=== PATIENT | male | born 1970 | race Caucasian/White ===

== ENCOUNTER 2017-02-11 16:20 | Emergency (ER) | payer OTHER ==
[~2017-02-11] VITALS: Ht 180.3 cm; Wt 98.5 kg
[~2017-02-11 16:20] MED LIST: AMLO5 PO; AZIT250T74 PO; LEVA750T PO; LORA10TA PO
[2017-02-11 16:27] VITALS: BP 157/106; PULSE 74; RESP 16; TEMP 98.6; O2SAT 96
[2017-02-11] MEDS ORDERED: LIDOCAINE 1%/EPINEPHrine 1:100,000 SOLN 20 ML VIAL INFIL ONE (16:45)
[2017-02-11] MEDS ORDERED: IBUPROFEN 800 MG TAB PO ONE (17:00)
--- NOTE | 2017-02-11 17:09 | PD ---
HPI Chief Complaint: Laceration/Skin Injury Time Seen by Provider: 17:08 Travel History International Travel<30 days: No Contact w/Intl Traveler<30days: No Traveled to known affect area: No History of Present Illness HPI 46-year-old right-hand dominant male presents to the ED for evaluation approximately 45 minutes after trip and fall. Patient states that he was attempting to load brush into his truck tripped over his shoe, fell onto the outstretched right hand and hit his head on the concrete lately. He states that he was wearing his glasses and he suffered a laceration over the left eye. He denies loss of consciousness. On presentation he complains of 5/10 pain in the right wrist and mild diffuse headache. Denies vision changes, dizziness , nausea. He is unsure of the date of his last tetanus immunization. He denies chronic health problems and takes no daily medications. NKDA. PFSH Past Medical History Medical History: Denies Significant Hx Arthritis: Yes Cancer: No Cardiovascular Problems: Yes (htn states not on meds) Diminished Hearing: No Endocrine: No Genitourinary: No Headaches: Yes Immune Disorder: No Musculoskeletal: Yes Neurologic: Yes Psychiatric: No Reproductive: No Respiratory: Yes (PNA LAST YEAR.) Immunizations Current: No Pneumonia: Yes (many times) Seizures: No Tetanus Vaccination: < 5 Years Influenza Vaccination: No ?: Not Past Surgical History Ear Surgery: Yes Tonsillectomy: Yes Tympanostomy Tube: Yes Social History Alcohol Use: Yes (BEER) Tobacco Use: No Substance Use: No Allergies-Medications (Allergen,Severity, Reaction): Coded Allergies: No Known Allergies (Verified , 02/11/17) Reported Meds & Prescriptions Reported Meds & Active Scripts Active Ibuprofen 800 Mg Tab 800 Mg PO Q8H Review of Systems Except as stated in HPI: all other systems reviewed are Neg Physical Exam Narrative GENERAL: Well-nourished, well-developed white male in no acute distress. Alert , oriented, sitting upright in the stretcher. SKIN: Warm and dry. There is 1.5 cm laceration just superior to the left eyebrow. Thorough evaluation reveals no other edema, ecchymosis, abrasion, or laceration of the skin. HEAD: Normocephalic. Atraumatic. No raccoon eyes or norton sign. No tenderness to palpation of the skull. No bony step-offs. No malocclusion of the teeth. EYES: No scleral icterus. No injection or drainage. PERRLA. EOMI. ENT: Pearly trejo tympanic membrane is bilaterally. Nasal mucosa is moist. Oropharynx without erythema, edema or exudate. NECK: Supple, trachea midline. No JVD or lymphadenopathy. No midline tenderness to palpation. Patient retains full, active, painless range of motion of the neck. CARDIOVASCULAR: Regular rate and rhythm without murmurs, gallops, or rubs. 2+ DP and radial pulses bilaterally. RESPIRATORY: Breath sounds clear and equal bilaterally. No accessory muscle use. GASTROINTESTINAL: Abdomen soft, non-tender, nondistended. + Bowel sounds Focused right upper extremity exam: Mild tenderness to palpation of the left wrist. Snuff box tenderness. Pain elicited with ulnar deviation. Strong Finger to thumb opposition. Patient retains full, active range of motion of the wrist and fingers. MUSCULOSKELETAL: No cyanosis, or edema. No tenderness to palpation or limitations to range of motion of the other joints of the upper and lower extremities bilaterally. NEUROLOGICAL: Awake and alert. Cranial nerves II through XII intact. Motor and sensory grossly within normal limits. 5/5 muscle strength in all muscle groups. Normal speech. BACK: Nontender without obvious deformity. No CVA tenderness. No midline tenderness. Data Data Last Documented VS Vital Signs Date Time Temp Pulse Resp B/P Pulse Ox O2 Delivery O2 Flow Rate FiO2 02/11/17 16:27 98.6 74 16 157/106 96 Orders Lidocai-Epi 1%-1:100,000 Inj (Xylocaine- (02/11/17 16:45) Wrist, Complete (Aok1xfn) (02/11/17 16:57) Ice/Cold Pack (02/11/17 16:57) Ibuprofen (Motrin) (02/11/17 17:00) Tetanus/Diphtheria Tox Adult (Tetanus/Di (02/11/17 17:15) MDM Medical Decision Making Medical Screen Exam Complete: Yes Emergency Medical Condition: Yes Differential Diagnosis Laceration versus wrist fracture versus closed head injury versus musculoskeletal pain versus other Narrative Course 46-year-old right-hand dominant male presents to the ED for evaluation approximately 45 minutes after trip and fall. Patient states that he was attempting to load brush into his truck tripped over his shoe, fell onto the outstretched right hand and hit his head on the concrete lately. He states that he was wearing his glasses and he suffered a laceration over the left eye. He denies loss of consciousness. On presentation he complains of 5/10 pain in the right wrist and mild diffuse headache. Denies vision changes, dizziness , nausea. He is unsure of the date of his last tetanus immunization. Vitals reviewed. Physical exam reveals an alert and oriented white male sitting up on the stretcher in no acute distress. Is 1.5 cm laceration just superior to left eyebrow. There is mild tenderness to palpation of the left wrist. No stuff box tenderness. Pain elicited with ulnar deviation. Neurovascularly intact. The need for radiological imaging of the brain and cervical spine was ruled out using [place] CT rules. Ice pack was applied. Patient was administered 100 mg ibuprofen. Tetanus immunization was updated. Laceration repair was performed. Please see my procedure note for details. X-ray reveals no acute bony injury of the wrist per radiology read. Patient was provided detailed wound care instructions, a brief course of anti-inflammatory medications was prescribed. He is instructed to monitor the wound for signs of infection, return to the ED for suture removal in 7 days. He indicated understanding of instructions. He is agreeable to the plan of care. He is stable and discharged home. Diagnosis Primary Impression: Laceration of left eyebrow with complication Qualified Code: S01.112A - Laceration of left eyebrow with complication, initial encounter Additional Impression: Right wrist pain Referrals: Primary Care Physician Patient Instructions: Facial Laceration (ED), General Instructions Additional Instructions: Rest, hydrate. Do not change the dressing for 24 hours You may bathe normally. Do not submerge the wound. After bathing pat of wound dry. Allow the wound to air dry for 10-15 minutes. Apply a thin layer of antibiotic ointment and a clean, dry dressing. 800 mg ibuprofen up to 3 times a day as needed for wrist pain. Suture removal in 7 days, either here or at the primary care or urgent care. Follow-up with your primary care provider in 2 weeks. Return to the ED for any urgent or emergent medical condition. Med/Other Pt SpecificInfo: Prescription(s) given Scripts Ibuprofen 800 Mg [id number] Mg PO Q8H #15 TAB Ref 0 Prov:Solo Faye MD 02/11/17 Disposition: 01 DISCHARGE HOME Condition: Stable Anabella Mattson Feb 11, 2017 17:09
[2017-02-11] MEDS ORDERED: TETANUS/DIPHTHERIA TOXOID ADULT 0.5 ML VIAL IM ONE (17:15)
--- NOTE | 2017-02-11 17:33 | RADHPO ---
EXAM DATE/TIME: 02/11/2017 17:13 [facility] COMPARISON: No previous studies available for comparison. INDICATIONS : Right medial wrist pain post fall. MEDICAL HISTORY : None. SURGICAL HISTORY : None. ENCOUNTER: Initial ACUITY: 1 day PAIN SCORE: 4/10 LOCATION: Right upper extremity FINDINGS: Three view examination of the right wrist demonstrates no soft tissue swelling, dislocation, or fract ure. The carpal bones are in normal alignment. The joint spaces are maintained. Bony mineralizatio n is normal. CONCLUSION: Negative for fracture or dislocation. Follow up in 7-10 days is suggested if symptoms persist. Guy Pablo MD FACR on February 11, 2017 at 17:28 Board Certified Radiologist. This report was verified electronically.
[2017-02-11] MEDS ORDERED: IBUP800T23 PO (17:58)
== END 2017-02-11 18:10 | disposition home or self-care (01) ==
LOC: PHEFT 16:20
DX: S01.112A Laceration without foreign body of left eyelid and periocular area, initial encounter (principal); M25.531 Pain in right wrist; Z23 Encounter for immunization; W01.198A Fall on same level from slipping, tripping and stumbling with subsequent striking against other object, initial encounter; Y93.89 Activity, other specified; Y92.89 Other specified places as the place of occurrence of the external cause; Y99.8 Other external cause status
CPT/HCPCS: 12011; 73110; 90471; 90714

== ENCOUNTER 2017-02-11 21:41 | Emergency (ER) | payer OTHER ==
[~2017-02-11] VITALS: Ht 180.3 cm; Wt 98.3 kg
[~2017-02-11 21:41] MED LIST changes: +IBUP800T23 PO
[2017-02-11 21:46] VITALS: BP 167/105; PULSE 65; RESP 16; TEMP 98.9; O2SAT 97
--- NOTE | 2017-02-11 22:11 | PD ---
HPI Chief Complaint: Laceration/Skin Injury Time Seen by Provider: 22:20 Travel History International Travel<30 days: No Contact w/Intl Traveler<30days: No Traveled to known affect area: No History of Present Illness HPI 46-year-old male who underwent laceration repair of the left eyebrow today presents to the ED for evaluation. Patient states that he went home, showered and had a "large amount" of dark red blood from the wound. Resolved on presentation. PFSH Past Medical History Arthritis: Yes Cancer: No Cardiovascular Problems: Yes (htn states not on meds) Diminished Hearing: No Endocrine: No Genitourinary: No Headaches: Yes Immune Disorder: No Musculoskeletal: Yes Neurologic: Yes Psychiatric: No Reproductive: No Respiratory: Yes (PNA LAST YEAR.) Immunizations Current: No Pneumonia: Yes (many times) Seizures: No Tetanus Vaccination: < 5 Years Influenza Vaccination: No Past Surgical History Ear Surgery: Yes Tonsillectomy: Yes Tympanostomy Tube: Yes Social History Alcohol Use: Yes (BEER) Tobacco Use: No Substance Use: No Allergies-Medications (Allergen,Severity, Reaction): Coded Allergies: No Known Allergies (Verified , 02/11/17) Reported Meds & Prescriptions Reported Meds & Active Scripts Active Ibuprofen 800 Mg Tab 800 Mg PO Q8H Review of Systems Except as stated in HPI: all other systems reviewed are Neg Physical Exam Narrative GENERAL: Well-nourished, well-developed white male in no acute distress. SKIN: Focused skin assessment warm/dry. There is a 1.5 cm laceration just superior to the left eyebrow. There are [address] Small amount of surrounding edema but no hematoma or active bleeding. HEAD: Normocephalic. EYES: No scleral icterus. No injection or drainage. NECK: Supple, trachea midline. No JVD or lymphadenopathy. CARDIOVASCULAR: Regular rate and rhythm without murmurs, gallops, or rubs. RESPIRATORY: Breath sounds equal bilaterally. No accessory muscle use. GASTROINTESTINAL: Abdomen soft, non-tender, nondistended. MUSCULOSKELETAL: No cyanosis, or edema. Patient is able to remove extremity spontaneously. BACK: Nontender without obvious deformity. No CVA tenderness. Data Data Last Documented VS Vital Signs Date Time Temp Pulse Resp B/P Pulse Ox O2 Delivery O2 Flow Rate FiO2 02/11/17 21:46 98.9 65 16 167/105 97 MDM Medical Decision Making Medical Screen Exam Complete: Yes Emergency Medical Condition: Yes Differential Diagnosis Laceration repair versus wound dehiscence versus arterial bleed versus wound recheck versus other Narrative Course 46-year-old male who underwent laceration repair of the left eyebrow today presents to the ED for evaluation. Patient states that he went home, showered and had a "large amount" of dark red blood from the wound. Resolved on presentation. There is a 1.5 cm laceration just superior to the left eyebrow. There are [address] Small amount of surrounding edema but no hematoma or active bleeding. The wound was cleansed with peroxide and water. Removal of the dried blood reveals no active bleeding. Suture line is in place. A pressure dressing was applied. Patient was instructed to follow previous discharge instructions, suture removal in 7 days. He indicated understanding or the instructions and is agreeable to the plan. He is stable and discharged home. Diagnosis Primary Impression: Encounter for wound re-check Referrals: Primary Care Physician Additional Instructions: Continue following previous discharge instructions. Suture removal in 7 days. Return to the ED for any urgent or emergent medical condition. Disposition: 01 DISCHARGE HOME Condition: Stable Anabella Mattson Feb 11, 2017 22:11
== END 2017-02-11 22:24 | disposition home or self-care (01) ==
LOC: PHEFT 21:41
DX: Z48.89 Encounter for other specified surgical aftercare (principal)
CPT/HCPCS: 99282

== ENCOUNTER 2018-02-06 14:02 | Emergency (ER) | payer OTHER ==
[~2018-02-06] VITALS: Ht 177.8 cm; Wt 98.7 kg
[~2018-02-06 14:02] MED LIST changes: -AMLO5 PO; -AZIT250T74 PO; +IBUP1TAB7 PO; -IBUP800T23 PO; -LEVA750T PO; -LORA10TA PO
[2018-02-06 14:04] VITALS: BP 168/83; PULSE 120; RESP 16; TEMP 99.6; O2SAT 95
[2018-02-06 15:13] VITALS: BP 158/87; PULSE 94; RESP 18; O2SAT 95
[2018-02-06] MEDS ORDERED: SUPPLEMENT PO (15:13)
[2018-02-06] MEDS ORDERED: [UNRECOGNIZED DRUG - OTHER] PO (15:13)
[2018-02-06] MEDS ORDERED: LISI-519 PO (15:13)
[2018-02-06] MEDS ORDERED: [UNRECOGNIZED DRUG - OTHER] PO (15:13)
--- NOTE | 2018-02-06 15:35 | PD ---
HPI Chief Complaint: Pain: Acute or Chronic Time Seen by Provider: 15:21 Travel History International Travel<30 days: No Contact w/Intl Traveler<30days: No Traveled to known affect area: No History of Present Illness HPI 47-year-old male complains of sharp shooting pain on left side of the head. Patient states that the pain started this afternoon. Patient states that the pain is sharp shooting pain started in the back of the head radiates to the left side of the head. Patient denies any visual change. Patient denies any photophobia. Patient denies any nausea vomiting. Patient denies any neck pain. Patient denies any focal weakness or numbness of extremity. Patient denies any recent injury. Patient denies any fever chills. PFSH Past Medical History Hx Anticoagulant Therapy: No Arthritis: Yes Cancer: No Cardiovascular Problems: Yes (HTN) Diabetes: No Diminished Hearing: No Endocrine: No Genitourinary: No Headaches: Yes Hypertension: Yes Immune Disorder: No Musculoskeletal: Yes Neurologic: Yes Psychiatric: No Reproductive: No Respiratory: Yes (PNA LAST YEAR.) Immunizations Current: Yes Pneumonia: Yes (many times) Seizures: No Tetanus Vaccination: < 5 Years Influenza Vaccination: No Past Surgical History Ear Surgery: Yes Tonsillectomy: Yes Tympanostomy Tube: Yes Social History Alcohol Use: Yes (BEER) Tobacco Use: No Substance Use: No Allergies-Medications (Allergen,Severity, Reaction): Coded Allergies: No Known Allergies (Verified Adverse Reaction, Unknown, 02/06/18) Reported Meds & Prescriptions Reported Meds & Active Scripts Active Reported [Knee Supplement] 3 Tab PO DAILY [Censor] 2 Tab PO BID Lisinopril 5 Mg Tab 5 Mg PO DAILY Review of Systems General / Constitutional: No: Fever Eyes: No: Visual changes HENT: Positive: Headaches Cardiovascular: No: Chest Pain or Discomfort Respiratory: No: Shortness of Breath Gastrointestinal: No: Abdominal Pain Genitourinary: No: Dysuria Musculoskeletal: No: Pain Skin: No Rash Neurologic: No: Weakness Psychiatric: No: Depression Endocrine: No: Polydipsia Hematologic/Lymphatic: No: Easy Bruising Physical Exam Narrative GENERAL: Well-nourished, well-developed patient. SKIN: Focused skin assessment warm/dry. HEAD: Normocephalic. Mild tenderness in palpation left occipital area of the scalp. No redness no heat no rash noted. EYES: No scleral icterus. No injection or drainage. Pupils 2 mm equal reactive. NECK: Supple, trachea midline. No JVD or lymphadenopathy. CARDIOVASCULAR: Regular rate and rhythm without murmurs, gallops, or rubs. RESPIRATORY: Breath sounds equal bilaterally. No accessory muscle use. GASTROINTESTINAL: Abdomen soft, non-tender, nondistended. MUSCULOSKELETAL: No cyanosis, or edema. BACK: Nontender without obvious deformity. No CVA tenderness. Neurologic exam: Patient is awake and alert oriented 3. No obvious focal neurologic deficit. Data Data Last Documented VS Vital Signs Date Time Temp Pulse Resp B/P (MAP) Pulse Ox O2 Delivery O2 Flow Rate FiO2 02/06/18 15:13 94 18 158/87 (110) 95 Room Air 02/06/18 14:04 99.6 Orders Orders Westergren Sedimentation Rate (02/06/18 15:30) Ct Brain W/O Iv Contrast(Rout) (02/06/18 15:30) MDM Medical Decision Making Medical Screen Exam Complete: Yes Emergency Medical Condition: Yes Differential Diagnosis Differential diagnosis including neuralgia, shingles, intracranial pathology. Narrative Course 47-year-old male with sharp shooting pain for the back of the head to the left side of the head. Tam Mosquera MD Feb 06, 2018 15:35
[2018-02-06 17:07] VITALS: BP 119/75; PULSE 67; RESP 18; O2SAT 98
--- NOTE | 2018-02-06 17:11 | RADRPT ---
EXAM DATE/TIME: 02/06/2018 16:51 [facility] COMPARISON: No previous studies available for comparison. INDICATIONS : Shooting pain to left side of head. RADIATION DOSE: 63.48 CTDIvol (mGy) MEDICAL HISTORY : Hypertension. SURGICAL HISTORY : None. ENCOUNTER: Initial ACUITY: 1 day PAIN SCALE: 4/10 LOCATION: Left cranial TECHNIQUE: Multiple contiguous axial images were obtained of the head. Using automated exposure control and adj ustment of the mA and/or kV according to patient size, radiation dose was kept as low as reasonably a chievable to obtain optimal diagnostic quality images. DICOM format image data is available electro nically for review and comparison. FINDINGS: CEREBRUM: The ventricles are normal for age. No evidence of midline shift, mass lesion, hemorrhage or acute in farction. No extra-axial fluid collections are seen. POSTERIOR FOSSA: The cerebellum and brainstem are intact. The 4th ventricle is midline. The cerebellopontine angle i s unremarkable. EXTRACRANIAL: The visualized portion of the orbits is intact. SKULL: The calvaria is intact. No evidence of skull fracture. CONCLUSION: Negative noncontrast head CT. Vineet tSewart MD on February 06, 2018 at 17:08 Board Certified Radiologist. This report was verified electronically.
[2018-02-06] MEDS ORDERED: CODE30TA2 PO (17:31)
[2018-02-06] MEDS ORDERED: ZOFR4TAB3 SL (17:31)
--- NOTE | 2018-02-06 17:33 | PD ---
Physical Exam Narrative GENERAL: SKIN: Warm and dry. HEAD: Atraumatic. Normocephalic. no temporal ttp, no rash, no lesions of skin EYES: Pupils equal and round. No scleral icterus. No injection or drainage. ENT: No nasal bleeding or discharge. Mucous membranes pink and moist. NECK: Trachea midline. No JVD. CARDIOVASCULAR: Regular rate and rhythm. RESPIRATORY: No accessory muscle use. Clear to auscultation. Breath sounds equal bilaterally. GASTROINTESTINAL: Abdomen soft, non-tender, nondistended. MUSCULOSKELETAL: Extremities without clubbing, cyanosis, or edema. No obvious deformities. NEUROLOGICAL: Awake and alert. No obvious cranial nerve deficits. Motor grossly within normal limits. Five out of 5 muscle strength in the arms and legs. Normal speech. PSYCHIATRIC: Appropriate mood and affect; insight and judgment normal. Data Data Last Documented VS Vital Signs Date Time Temp Pulse Resp B/P (MAP) Pulse Ox O2 Delivery O2 Flow Rate FiO2 02/06/18 17:07 67 18 119/75 (90) 98 Room Air 02/06/18 14:04 99.6 Orders Orders Westergren Sedimentation Rate (02/06/18 15:30) Ct Brain W/O Iv Contrast(Rout) (02/06/18 15:30) Labs Laboratory Tests Test 02/06/18 15:30 Erythrocyte Sedimentation Rate 1 mm/hr [facility] Medical Record Reviewed: Yes Supervised Visit with MARIA: No Narrative Course Sed rate level was 1 which is well below what is expected for temporal arteritis. Therefore this is not in the differential of possibilities. However the possibility of occipital neuralgia is very likely as the pain starts from the posterior left side and radiates outward. CT head is negative for any intracranial hemorrhage, mass, or sinusitis. Diagnosis Primary Impression: neuralgia Patient Instructions: Acute Headache (ED), General Instructions Scripts Ondansetron Odt (Zofran Odt) 4 Mg Tab 4 MG SL Q8HR Y for Nausea/Vomiting, #15 TAB 0 Refills Prov: Guillaume Aponte MD 02/06/18 Codeine-Acetaminophen (Codeine-Acetaminophen) 30-300 mg Tab 1 TAB PO Q4H Y for PAIN, #15 TAB 0 Refills Prov: Guillaume Aponte MD 02/06/18 Disposition: DISCHARGE HOME Condition: Stable Guillaume Aponte MD Feb 06, 2018 17:33
[2018-02-06 18:30] VITALS: BP 119/75
== END 2018-02-06 18:31 | disposition home or self-care (01) ==
LOC: PHED 14:02
DX: M79.2 Neuralgia and neuritis, unspecified (principal); I10 Essential (primary) hypertension
CPT/HCPCS: 70450; 85652; 99284

== ENCOUNTER 2018-04-22 13:05 | Emergency (ER) | payer OTHER ==
[~2018-04-22] VITALS: Ht 177.8 cm; Wt 92.8 kg
[~2018-04-22 13:05] MED LIST changes: +CODE30TA2 PO; -IBUP1TAB7 PO; +LISI-519 PO; +SUPPLEMENT PO; +ZOFR4TAB3 SL; +[UNRECOGNIZED DRUG - OTHER] PO; +[UNRECOGNIZED DRUG - OTHER] PO
[2018-04-22 13:12] VITALS: BP 146/81; PULSE 84; RESP 20; TEMP 99.1; O2SAT 93
[2018-04-22] MEDS ORDERED: PRED20 PO (13:29)
[2018-04-22] MEDS ORDERED: [UNRECOGNIZED DRUG - OTHER] PO (13:29)
[2018-04-22] MEDS ORDERED: SODIUM CHLORIDE 0.9% FLUSH 10 ML FLUSH IVF PRN (13:30)
--- NOTE | 2018-04-22 13:59 | PD ---
HPI . Cough and shortness of breath Chief Complaint: Respiratory Symptoms Time Seen by Provider: 13:19 Travel History International Travel<30 days: No Contact w/Intl Traveler<30days: No Traveled to known affect area: No History of Present Illness HPI Patient presents with a cough, shortness of breath, fever and sputum production. He had the onset of some nasal congestion approximately 5 days ago. He attributed it to allergies. He called his doctor who called in a prescription for prednisone 20 mg daily for 5 days. He has completed 4 days of the prednisone. He has gotten worse rather than better. His chest symptoms started 4 days ago. The chest symptoms have gotten progressively worse. He now has dyspnea on exertion. PFSH Past Medical History Hx Anticoagulant Therapy: No Arthritis: Yes Cancer: No Cardiovascular Problems: Yes (HTN) Diabetes: No Diminished Hearing: No Endocrine: No Genitourinary: No Headaches: Yes Hypertension: Yes Immune Disorder: No Musculoskeletal: Yes Neurologic: Yes Psychiatric: No Reproductive: No Respiratory: Yes (PNA LAST YEAR.) Immunizations Current: Yes (UTD) Pneumonia: Yes (many times) Seizures: No Influenza Vaccination: No Past Surgical History Ear Surgery: Yes Tonsillectomy: Yes Tympanostomy Tube: Yes (EARDRUM REPAIR) Social History Alcohol Use: Yes (BEER OCC) Tobacco Use: No (NEVER) Substance Use: No Allergies-Medications (Allergen,Severity, Reaction): Coded Allergies: No Known Allergies (Verified Adverse Reaction, Unknown, 04/22/18) Reported Meds & Prescriptions Reported Meds & Active Scripts Active Reported [Htn Supplement] 2 Tab PO DAILY Prednisone 20 Mg Tab 20 Mg PO DAILY [Knee Supplement] 3 Tab PO DAILY Review of Systems Except as stated in HPI: all other systems reviewed are Neg General / Constitutional: Positive: Fever, Chills Cardiovascular: Positive: Dyspnea on exertion Respiratory: Positive: Cough, Shortness of Breath Physical Exam Narrative GENERAL: Awake and alert and in no acute distress. SKIN: warm/dry. HEAD: Normocephalic. Atraumatic. EYES: Pupils equal and round. Extraocular movements are intact. ENT: Mucous membranes pink and moist. NECK: Supple. Full range of motion without pain.. CARDIOVASCULAR: Regular rate and rhythm. Heart sounds normal. RESPIRATORY: No accessory muscle use. Rhonchi in the right midlung field. Breath sounds equal bilaterally. Respiratory rate 20 with sats of 93% on room air. Previous sats have been 97-98% in the past. MUSCULOSKELETAL: No obvious deformities. Normal muscle tone. No peripheral edema. NEUROLOGICAL: Awake and alert. No obvious cranial nerve deficits. Motor grossly within normal limits. Normal speech. PSYCHIATRIC: Appropriate mood and affect; insight and judgment normal. Data Data Last Documented VS Vital Signs Date Time Temp Pulse Resp B/P (MAP) Pulse Ox O2 Delivery O2 Flow Rate FiO2 04/22/18 13:19 18 93 04/22/18 13:12 99.1 84 146/81 (102) Orders Orders Basic Metabolic Panel (Bmp) (04/22/18 13:21) Complete Blood Count With Diff (04/22/18 13:21) Lactic Acid Sepsis Protocol (04/22/18 13:21) Blood Culture (04/22/18 13:21) Chest, Pa & Lat (04/22/18 13:21) Iv Access Insert/Monitor (04/22/18 13:21) Sodium Chloride 0.9% Flush (Ns Flush) (04/22/18 13:30) Ceftriaxone Inj (Rocephin Inj) (04/22/18 14:45) Azithromycin Inj (Zithromax Inj) (04/22/18 14:45) Labs Laboratory Tests Test 04/22/18 14:05 White Blood Count 9.2 TH/MM3 Red Blood Count 5.20 MIL/MM3 Hemoglobin 15.9 GM/DL Hematocrit 44.9 % Mean Corpuscular Volume 86.4 FL Mean Corpuscular Hemoglobin 30.6 PG Mean Corpuscular Hemoglobin Concent 35.5 % Red Cell Distribution Width 13.7 % Platelet Count 225 TH/MM3 Mean Platelet Volume 8.5 FL Neutrophils (%) (Auto) 79.4 % Lymphocytes (%) (Auto) 15.5 % Monocytes (%) (Auto) 4.7 % Eosinophils (%) (Auto) 0.1 % Basophils (%) (Auto) 0.3 % Neutrophils # (Auto) 7.4 TH/MM3 Lymphocytes # (Auto) 1.4 TH/MM3 Monocytes # (Auto) 0.4 TH/MM3 Eosinophils # (Auto) 0.0 TH/MM3 Basophils # (Auto) 0.0 TH/MM3 CBC Comment DIFF FINAL Differential Comment Blood Urea Nitrogen 18 MG/DL Creatinine 1.10 MG/DL Random Glucose 110 MG/DL Calcium Level 8.3 MG/DL Sodium Level 130 MEQ/L Potassium Level 3.5 MEQ/L Chloride Level 96 MEQ/L Carbon Dioxide Level 25.3 MEQ/L Anion Gap 9 MEQ/L Estimat Glomerular Filtration Rate 71 ML/MIN Lactic Acid Level 1.3 mmol/L MDM Medical Decision Making Medical Screen Exam Complete: Yes Emergency Medical Condition: Yes Differential Diagnosis Differential diagnosis includes but is not limited to viral respiratory illness , bronchitis, pneumonia, allergies, CHF, asthma/COPD. Narrative Course Patient presents for the evaluation of cough associated with fever and sputum production. His oxygen saturation is a little bit lower than previously. He has no history of heart or lung disease and no history of cigarette smoking. Evaluation for possible pneumonia is in process. Last Impressions Chest X-Ray 04/22/18 1321 Signed Impressions: CONCLUSION: Partially consolidated left lower lobe infiltrate. The chest x-ray was independently reviewed by me. He will be given Rocephin and Zithromax. CBC & BMP Diagram 04/22/18 14:05 Calcium Level 8.3 L He is not in any respiratory distress. He does not have SIRS. The patient will be discharged home with a prescription for Zithromax. He will be asked to follow-up with his primary care doctor next week. Diagnosis Primary Impression: Pneumonia Qualified Codes: J18.1 - Lobar pneumonia, unspecified organism Referrals: David Finn MD PhD Patient Instructions: Community Acquired Pneumonia (DC), General Instructions Med/Other Pt SpecificInfo: Prescription(s) given Scripts Azithromycin (Zithromax) 250 Mg Tab 250 MG PO DAILY for Infection for 4 Days, #4 TAB 0 Refills start tomorrow Prov: Vikki Augustine MD 04/22/18 Disposition: 01 DISCHARGE HOME Condition: Stable Vikki Augustine MD Apr 22, 2018 13:59
[2018-04-22 14:16] LABS: AUTOMATED NEUTROPHIL # 7.4 TH/MM3 (1.8-7.7); BASOPHIL % 0.3 % (0.0-2.0); EOSINOPHIL % 0.1 % (0.0-4.0); HEMATOCRIT 44.9 % (39.0-51.0); HEMOGLOBIN 15.9 GM/DL (13.0-17.0); LYMPH % 15.5 % (9.0-44.0); LYMPHOCYTE # 1.4 TH/MM3 (1.0-4.8); MEAN CELL VOLUME 86.4 FL (80.0-100.0); MEAN CORPUSCULAR HEMOGLOBIN 30.6 PG (27.0-34.0); MEAN CORPUSCULAR HGB CONC 35.5 % (32.0-36.0); MEAN PLATELET VOLUME 8.5 FL (7.0-11.0); MONO % 4.7 % (0.0-8.0); MONOCYTE # 0.4 TH/MM3 (0-0.9); NEUT % 79.4 % (16.0-70.0); PLATELET COUNT 225 TH/MM3 (150-450); RED CELL DISTRIBUTION WIDTH 13.7 % (11.6-17.2); WHITE BLOOD COUNT 9.2 TH/MM3 (4.0-11.0)
--- NOTE | 2018-04-22 14:21 | RADRPT ---
EXAM DATE: 04/22/2018 2:16 PM EDT AGE/SEX: 47 years / Male INDICATIONS: Cough. Congestion. CLINICAL DATA: This is the patient's initial encounter. Patient reports that signs and symptoms have been present for 4 - 6 days and indicates a pain score of 4/10. MEDICAL/SURGICAL HISTORY: None. None. COMPARISON: [facility], CHEST PA & LAT, 12/15/2011. [facility], CHEST PA & LAT, 12/20/2014. . FINDINGS: PA and lateral views of the chest demonstrate interval development of a nonconsolidative infiltrate i n the medial posterior left lower lung causing loss of delineation of the posterior hemidiaphragm on the lateral view. The right lung is clear. The heart is normal in size. No evidence of pneumothorax. The osseous structures are intact. CONCLUSION: Partially consolidated left lower lobe infiltrate. Electronically signed by: Albaro Lagunas MD 04/22/2018 2:20 PM EDT
[2018-04-22 14:27] LABS: CALCIUM 8.3 MG/DL (8.5-10.1)
[2018-04-22 14:28] LABS: BICARBONATE 25.3 MEQ/L (21.0-32.0)
[2018-04-22 14:31] LABS: CREATININE 1.1 MG/DL (0.60-1.30)
[2018-04-22] MEDS ORDERED: cefTRIAXone INJ 2,000 MG in SODIUM CHLORIDE 0.9% INJ 100 ML IV ONE (14:45)
[2018-04-22] MEDS ORDERED: AZITHROMYCIN INJ 500 MG in SODIUM CHLOR 0.9% 250 ML INJ 250 ML IV ONE (14:45)
[2018-04-22] MEDS ORDERED: ZITH250T PO (15:04)
[2018-04-22] MEDS ORDERED: ONDANSETRON HCL 4 MG/2 ML VIAL IV PUSH ONE (15:45)
[2018-04-22 17:11] VITALS: BP 140/83; PULSE 71; RESP 16
== END 2018-04-22 17:21 | disposition home or self-care (01) ==
LOC: PHED 13:05
DX: J18.1 Lobar pneumonia, unspecified organism (principal); R05 Cough; R06.02 Shortness of breath; I10 Essential (primary) hypertension; M19.90 Unspecified osteoarthritis, unspecified site
CPT/HCPCS: 71046; 80048; 83605; 85025; 87040; 96365; 96367; 96375; 99284; J0456; J0696; J2405; J7050

== ENCOUNTER 2018-04-24 18:02 | Emergency (ER) | payer OTHER ==
[~2018-04-24] VITALS: Ht 177.8 cm; Wt 89.0 kg
[~2018-04-24 18:02] MED LIST changes: -CODE30TA2 PO; -LISI-519 PO; +PRED20 PO; +ZITH250T PO; -ZOFR4TAB3 SL; +[UNRECOGNIZED DRUG - OTHER] PO; -[UNRECOGNIZED DRUG - OTHER] PO
[2018-04-24 18:13] VITALS: BP 145/84; PULSE 81; RESP 18; TEMP 99.7; O2SAT 92
[2018-04-24] MEDS ORDERED: LEVOFLOXACIN 500 MG PREMIX INJ 100 ML IV ONE (18:15)
--- NOTE | 2018-04-24 18:33 | PD ---
HPI Chief Complaint: Respiratory Symptoms Time Seen by Provider: 18:08 Travel History International Travel<30 days: No Contact w/Intl Traveler<30days: No Traveled to known affect area: No History of Present Illness HPI 47-year-old male presented ER for evaluation of cough, shortness of breath, fever for the last 2 days. Patient was diagnosed with left lower lobe pneumonia on April 22 and was offered to be admitted but patient preferred outpatient treatment but for the last 2 days he has been having fever that is not well controlled with Tylenol, shortness of breath, cough that is not improving with outpatient oral antibiotics. Patient called his primary care physician who advised him to come to the ER for further evaluation. Patient has no chest pain, no nausea or vomiting and has been able to tolerate food well. PFSH Past Medical History Hx Anticoagulant Therapy: No Arthritis: Yes Cancer: No Cardiovascular Problems: Yes (HTN) Diabetes: No Diminished Hearing: No Endocrine: No Genitourinary: No Headaches: Yes Hypertension: Yes Immune Disorder: No Musculoskeletal: Yes Neurologic: Yes Psychiatric: No Reproductive: No Respiratory: Yes (PNA LAST YEAR.) Immunizations Current: Yes (UTD) Pneumonia: Yes (many times) Seizures: No Past Surgical History Ear Surgery: Yes Tonsillectomy: Yes Tympanostomy Tube: Yes (EARDRUM REPAIR) Social History Alcohol Use: Yes (BEER OCC) Tobacco Use: No (NEVER) Substance Use: No Allergies-Medications (Allergen,Severity, Reaction): Coded Allergies: No Known Allergies (Verified Adverse Reaction, Unknown, 04/22/18) Reported Meds & Prescriptions Reported Meds & Active Scripts Active Zithromax (Azithromycin) 250 Mg Tab 250 Mg PO DAILY 4 Days start tomorrow Reported [Htn Supplement] 2 Tab PO DAILY [Knee Supplement] 3 Tab PO DAILY Review of Systems Except as stated in HPI: all other systems reviewed are Neg Physical Exam Narrative GENERAL: Alert oriented 3 no acute distress SKIN: Focused skin assessment warm/dry. HEAD: Atraumatic. Normocephalic. EYES: Pupils equal and round. No scleral icterus. No injection or drainage. ENT: No nasal bleeding or discharge. Mucous membranes pink and moist. NECK: Trachea midline. No JVD. CARDIOVASCULAR: Regular rate and rhythm. No murmur appreciated. RESPIRATORY: Mild decreased breath sounds left lower lobe arguello, saturating in the lower 90s on room air, no accessory muscle use. GASTROINTESTINAL: Abdomen soft, non-tender, nondistended. Hepatic and splenic margins not palpable. MUSCULOSKELETAL: No obvious deformities. No clubbing. No cyanosis. No edema. NEUROLOGICAL: Awake and alert. No obvious cranial nerve deficits. Motor grossly within normal limits. Normal speech. PSYCHIATRIC: Appropriate mood and affect; insight and judgment normal. Data Data Last Documented VS Vital Signs Date Time Temp Pulse Resp B/P (MAP) Pulse Ox O2 Delivery O2 Flow Rate FiO2 04/24/18 21:10 65 20 132/68 (89) 95 04/24/18 20:30 99.3 Room Air Orders Orders Complete Blood Count With Diff (04/24/18 18:14) Comprehensive Metabolic Panel (04/24/18 18:14) Lactic Acid (04/24/18 18:14) Troponin I (04/24/18 18:14) Urinalysis - C+S If Indicated (04/24/18 18:14) Blood Culture (04/24/18 18:14) Chest, Pa & Lat (04/24/18 ) Levofloxacin 500 Mg Premix Inj (Levaquin (04/24/18 18:15) Sodium Chlor 0.9% 1000 Ml Inj (Ns 1000 M (04/24/18 20:30) Ketorolac Inj (Toradol Inj) (04/24/18 20:30) Labs Laboratory Tests Test 04/24/18 18:30 04/24/18 18:35 04/24/18 18:40 White Blood Count 7.3 TH/MM3 Red Blood Count 5.02 MIL/MM3 Hemoglobin 15.0 GM/DL Hematocrit 44.3 % Mean Corpuscular Volume 88.4 FL Mean Corpuscular Hemoglobin 29.9 PG Mean Corpuscular Hemoglobin Concent 33.9 % Red Cell Distribution Width 13.1 % Platelet Count 218 TH/MM3 Mean Platelet Volume 8.8 FL Neutrophils (%) (Auto) 67.1 % Lymphocytes (%) (Auto) 25.9 % Monocytes (%) (Auto) 5.8 % Eosinophils (%) (Auto) 0.2 % Basophils (%) (Auto) 1.0 % Neutrophils # (Auto) 4.9 TH/MM3 Lymphocytes # (Auto) 1.9 TH/MM3 Monocytes # (Auto) 0.4 TH/MM3 Eosinophils # (Auto) 0.0 TH/MM3 Basophils # (Auto) 0.1 TH/MM3 CBC Comment DIFF FINAL Differential Comment Blood Urea Nitrogen 12 MG/DL Creatinine 0.96 MG/DL Random Glucose 101 MG/DL Total Protein 7.4 GM/DL Albumin 2.7 GM/DL Calcium Level 8.3 MG/DL Alkaline Phosphatase 46 U/L Aspartate Amino Transf (AST/SGOT) 69 U/L Alanine Aminotransferase (ALT/SGPT) 80 U/L Total Bilirubin 0.5 MG/DL Sodium Level 131 MEQ/L Potassium Level 4.2 MEQ/L Chloride Level 97 MEQ/L Carbon Dioxide Level 25.9 MEQ/L Anion Gap 8 MEQ/L Estimat Glomerular Filtration Rate 83 ML/MIN Troponin I LESS THAN 0.02 NG/ML Lactic Acid Level 1.5 mmol/L Urine Color YELLOW Urine Turbidity CLEAR Urine pH 6.0 Urine Specific [place] GREATER/EQUAL 1.030 Urine Protein 100 mg/dL Urine Glucose (UA) NEG mg/dL Urine Ketones NEG mg/dL Urine Occult Blood SMALL Urine Nitrite NEG Urine Bilirubin NEG Urine Urobilinogen 0.2 MG/DL Urine Leukocyte Esterase NEG Urine RBC 0-3 /hpf Urine WBC 3-5 /hpf Urine Squamous Epithelial Cells 0-5 /hpf Urine Amorphous Sediment SMALL Urine Bacteria FEW /hpf Urine Hyaline Casts 0-2 /lpf Urine Mucus FEW /lpf Microscopic Urinalysis Comment CULT NOT INDICATED MDM Medical Decision Making Medical Screen Exam Complete: Yes Emergency Medical Condition: Yes Differential Diagnosis Pneumonia, sepsis. Narrative Course 47-year-old male presented ER for evaluation of cough and fever. Patient was diagnosed recently with pneumonia, pending labs and x-ray will be signed out to Dr. Goode. Diagnosis Primary Impression: Pneumonia Qualified Codes: J18.1 - Lobar pneumonia, unspecified organism Brian Cloud MD Apr 24, 2018 18:33
[2018-04-24 18:46] LABS: BILIRUBIN, URINE NEG (NEG); BLOOD, URINE SMALL (NEG); GLUCOSE,URINE NEG (NEG); KETONE, URINE NEG (NEG); NITRITE,URINE NEG (NEG); URINE COLOR YELLOW (YELLW/STRAW); URINE LEUKOCYTE ESTERASE NEG (NEG)
[2018-04-24 18:47] LABS: AUTOMATED NEUTROPHIL # 4.9 TH/MM3 (1.8-7.7); BASOPHIL # 0.1 TH/MM3 (0-0.2); EOSINOPHIL % 0.2 % (0.0-4.0); HEMATOCRIT 44.3 % (39.0-51.0); LYMPH % 25.9 % (9.0-44.0); LYMPHOCYTE # 1.9 TH/MM3 (1.0-4.8); MEAN CELL VOLUME 88.4 FL (80.0-100.0); MEAN CORPUSCULAR HEMOGLOBIN 29.9 PG (27.0-34.0); MEAN CORPUSCULAR HGB CONC 33.9 % (32.0-36.0); MEAN PLATELET VOLUME 8.8 FL (7.0-11.0); MONO % 5.8 % (0.0-8.0); MONOCYTE # 0.4 TH/MM3 (0-0.9); NEUT % 67.1 % (16.0-70.0); PLATELET COUNT 218 TH/MM3 (150-450); RED BLOOD COUNT 5.02 MIL/MM3 (4.50-5.90); RED CELL DISTRIBUTION WIDTH 13.1 % (11.6-17.2); WHITE BLOOD COUNT 7.3 TH/MM3 (4.0-11.0)
[2018-04-24 18:52] LABS: MUCUS URINE FEW /lpf (OCC); RBC, URINE 0-3 /hpf (0-3)
[2018-04-24 18:53] LABS: AMORPHOUS SEDIMENT, URINE SMALL; BACTERIA, URINE FEW /hpf; HYALINE CAST, URINE 0-2 /lpf (RARE); SQUAMOUS EPITHELIAL CELL URINE 0-5 /hpf (0-5)
[2018-04-24 18:56] LABS: CHLORIDE 97 MEQ/L (98-107); SODIUM (NA) 131 MEQ/L (136-145)
[2018-04-24 18:59] LABS: CALCIUM 8.3 MG/DL (8.5-10.1)
[2018-04-24 19:00] LABS: ALBUMIN 2.7 GM/DL (3.4-5.0); BICARBONATE 25.9 MEQ/L (21.0-32.0); BLOOD UREA NITROGEN 12 MG/DL (7-18); GLUCOSE,RANDOM 101 MG/DL (74-106)
[2018-04-24 19:03] LABS: ALT (GPT) 80 U/L (12-78); AST (GOT) 69 U/L (15-37); CREATININE 0.96 MG/DL (0.60-1.30); GLOMERULAR FILTRATION RATE 83 ML/MIN (>89)
[2018-04-24 19:04] LABS: TOTAL BILIRUBIN ADULT 0.5 MG/DL (0.2-1.0); TOTAL PROTEIN 7.4 GM/DL (6.4-8.2)
[2018-04-24 19:06] LABS: ALKALINE PHOSPHATASE 46 U/L (45-117)
[2018-04-24 19:08] LABS: TROPONIN I LESS THAN 0.02 NG/ML (0.02-0.05)
--- NOTE | 2018-04-24 19:23 | RADRPT ---
EXAM DATE: 04/24/2018 7:04 PM EDT AGE/SEX: 47 years / Male INDICATIONS: Cough and congestion for 1 week, fever for 2 days. CLINICAL DATA: This is the patient's initial encounter. Patient reports that signs and symptoms have been present for 1 week and indicates a pain score of 0/10. MEDICAL/SURGICAL HISTORY: None. None. COMPARISON: [facility], CHEST PA & LAT, 04/22/2018. . FINDINGS: There is no change in dense left lung base infiltrate. Heart and mediastinum are unremarkable. CONCLUSION: Stable left lower lobe infiltrate suspicious for pneumonia. Electronically signed by: Renee Casas MD 04/24/2018 7:22 PM EDT
[2018-04-24 19:30] VITALS: BP 145/84; PULSE 81; RESP 20; O2SAT 95
--- NOTE | 2018-04-24 20:29 | PD ---
Physical Exam Date Seen by Provider: Apr 24, 2018 Time Seen by Provider: 20:23 Narrative accepted in transfer of care from Dr Cloud Data Data Last Documented VS Vital Signs Date Time Temp Pulse Resp B/P (MAP) Pulse Ox O2 Delivery O2 Flow Rate FiO2 04/24/18 18:30 94 Room Air 04/24/18 18:13 99.7 81 18 145/84 (104) Orders Orders Complete Blood Count With Diff (04/24/18 18:14) Comprehensive Metabolic Panel (04/24/18 18:14) Lactic Acid (04/24/18 18:14) Troponin I (04/24/18 18:14) Urinalysis - C+S If Indicated (04/24/18 18:14) Blood Culture (04/24/18 18:14) Chest, Pa & Lat (04/24/18 ) Levofloxacin 500 Mg Premix Inj (Levaquin (04/24/18 18:15) Labs Laboratory Tests Test 04/24/18 18:30 04/24/18 18:35 04/24/18 18:40 White Blood Count 7.3 TH/MM3 Red Blood Count 5.02 MIL/MM3 Hemoglobin 15.0 GM/DL Hematocrit 44.3 % Mean Corpuscular Volume 88.4 FL Mean Corpuscular Hemoglobin 29.9 PG Mean Corpuscular Hemoglobin Concent 33.9 % Red Cell Distribution Width 13.1 % Platelet Count 218 TH/MM3 Mean Platelet Volume 8.8 FL Neutrophils (%) (Auto) 67.1 % Lymphocytes (%) (Auto) 25.9 % Monocytes (%) (Auto) 5.8 % Eosinophils (%) (Auto) 0.2 % Basophils (%) (Auto) 1.0 % Neutrophils # (Auto) 4.9 TH/MM3 Lymphocytes # (Auto) 1.9 TH/MM3 Monocytes # (Auto) 0.4 TH/MM3 Eosinophils # (Auto) 0.0 TH/MM3 Basophils # (Auto) 0.1 TH/MM3 CBC Comment DIFF FINAL Differential Comment Blood Urea Nitrogen 12 MG/DL Creatinine 0.96 MG/DL Random Glucose 101 MG/DL Total Protein 7.4 GM/DL Albumin 2.7 GM/DL Calcium Level 8.3 MG/DL Alkaline Phosphatase 46 U/L Aspartate Amino Transf (AST/SGOT) 69 U/L Alanine Aminotransferase (ALT/SGPT) 80 U/L Total Bilirubin 0.5 MG/DL Sodium Level 131 MEQ/L Potassium Level 4.2 MEQ/L Chloride Level 97 MEQ/L Carbon Dioxide Level 25.9 MEQ/L Anion Gap 8 MEQ/L Estimat Glomerular Filtration Rate 83 ML/MIN Troponin I LESS THAN 0.02 NG/ML Lactic Acid Level 1.5 mmol/L Urine Color YELLOW Urine Turbidity CLEAR Urine pH 6.0 Urine Specific [place] GREATER/EQUAL 1.030 Urine Protein 100 mg/dL Urine Glucose (UA) NEG mg/dL Urine Ketones NEG mg/dL Urine Occult Blood SMALL Urine Nitrite NEG Urine Bilirubin NEG Urine Urobilinogen 0.2 MG/DL Urine Leukocyte Esterase NEG Urine RBC 0-3 /hpf Urine WBC 3-5 /hpf Urine Squamous Epithelial Cells 0-5 /hpf Urine Amorphous Sediment SMALL Urine Bacteria FEW /hpf Urine Hyaline Casts 0-2 /lpf Urine Mucus FEW /lpf Microscopic Urinalysis Comment CULT NOT INDICATED MDM Medical Record Reviewed: Yes Supervised Visit with MARIA: No Interpretation(s) lactic acid: 1.5, not elevated Last Impressions Chest X-Ray 04/24/18 0000 Signed Impressions: CONCLUSION: Stable left lower lobe infiltrate suspicious for pneumonia. CBC & BMP Diagram 04/24/18 18:30 Total Protein 7.4, Albumin 2.7 L, Calcium Level 8.3 L, Alkaline Phosphatase 46, Aspartate Amino Transf (AST/SGOT) 69 H, Alanine Aminotransferase (ALT/SGPT) 80 H , Total Bilirubin 0.5 Vital Signs Date Time Temp Pulse Resp B/P (MAP) Pulse Ox O2 Delivery O2 Flow Rate FiO2 04/24/18 18:30 94 Room Air 04/24/18 18:13 99.7 81 18 145/84 (104) 92 Differential Diagnosis accepted in transfer of care from Dr Cloud; please refer to his dictation Narrative Course accepted in transfer of care from Dr Cloud; follow up pending labs and disposition Patient informed of lab results which are found to be grossly in normal range except for mild transaminitis. Chest x-ray continues to show left lower lobe infiltrate. Patient here is afebrile without tachycardia normal total white cell count and lactic acid is not elevated. Patient states that he anticipates being admitted to the hospital. Patient states he is upset because he continues to have to take acetaminophen every 6 hours for fever. Patient does not report any chest pain or shortness of breath. Call placed to patient's primary care provider who is on-call for coverage tonight. Patient's case discussed with Dr. Finn who states the patient does not need to be admitted at this time he will see him in the office tomorrow; he reports he just prescribed additional coverage with cefdinir today --- (patient admits to taking x 1 dose). Does request an additional dose of IV antibiotic patient is already received Levaquin 750 mg 1 dose IV. Patient will have repeat vital signs are received 1 L of normal saline. And patient is aware of plan for discharge to home. Diagnosis Primary Impression: Pneumonia Referrals: David Finn MD PhD 1 day Patient Instructions: General Instructions Departure Forms: Tests/Procedures, Work Release Special Instructions: no work x 4 days Additional Instruction: Increase fluid hydration May take acetaminophen 650 mg as often as every 4-6 hours as needed for fever 100.4F or greater as well as may take ibuprofen 800 mg as often as every 8 hours for fever 100.4F or greater or for pain associated with inflammation Complete course of antibiotic as presently prescribed (azithromycin and cefdinir ) Follow-up with your primary care provider Dr. Finn 1 day Return to the emergency department for fever chills nausea vomiting chest pain shortness of breath or any concerns No work 4 days or as long as ongoing fever Disposition: 01 DISCHARGE HOME Condition: Stable Anuja Goode MD Apr 24, 2018 20:29
[2018-04-24 20:30] VITALS: BP_SYST 141; BP_SYST 145; BP_DIAS 79; BP_DIAS 84; PULSE 76; PULSE 81; RESP 18; RESP 20; TEMP 99.3; O2SAT 95
[2018-04-24] MEDS ORDERED: KETOROLAC TROMETHAMINE 30 MG/ML (IVP) VIAL IV PUSH ONE (20:30)
[2018-04-24] MEDS ORDERED: SODIUM CHLOR 0.9% 1000 ML INJ 1,000 ML IV ONE (20:30)
[2018-04-24 21:10] VITALS: BP 132/68
== END 2018-04-24 21:10 | disposition home or self-care (01) ==
LOC: PHED 18:02
DX: J18.9 Pneumonia, unspecified organism (principal); M19.90 Unspecified osteoarthritis, unspecified site; I10 Essential (primary) hypertension; Z87.01 Personal history of pneumonia (recurrent); Z79.899 Other long term (current) drug therapy
CPT/HCPCS: 71046; 80053; 81001; 83605; 84484; 85025; 87040; 96361; 96365; 96375; 99284; J1885; J1956; J7030